=== PATIENT | female | born 1995 | race African-American/Black ===

== ENCOUNTER 2019-01-05 18:41 | Emergency (ER) | payer OTHER ==
[~2019-01-05] VITALS: Ht 175.3 cm; Wt 51.5 kg
[2019-01-05 20:08] LABS: CLARITY URINE CLEAR (CLEAR); COLOR URINE YELLOW (YELLOW); KETONES URINE NEGATIVE (NEGATIVE); LEUKOCYTE ESTERASE URINE 2+ (NEGATIVE); NITRITE URINE NEGATIVE (NEGATIVE); OCCULT BLOOD URINE TRACE (NEGATIVE); PH URINE 6.5 (4.5-8.0); PROTEIN URINE NEGATIVE (NEGATIVE); SPECIFIC GRAVITY URINE 1.021 (1.005-1.030); UROBILINOGEN URINE 0.2 E.U./dL (0.2-1.0)
[2019-01-05 20:20] LABS: BASOPHILS % 0.4 % (0.0-2.0); EOSINOPHILS % 0.2 % (0.0-5.0); HEMATOCRIT. 35.9 % (36.0-48.0); HEMOGLOBIN. 11.9 g/dL (12.0-16.0); LYMPHOCYTES % 10.4 % (20.0-50.0); MEAN CORPUSCULAR VOLUME 90.4 fL (81.0-99.0); MEAN PLATELET VOLUME 8.4 fl (7.4-10.4); PLATELET 218 x1000/uL (130-400); RED BLOOD CELL COUNT 3.97 mill/uL (4.2-5.4); RED CELL DISTRIBUTION WIDTH 14.3 % (11.6-14.6)
[2019-01-05 20:26] LABS: CHLORIDE 104 mEq/L (98-107)
[2019-01-05 20:27] LABS: PROTHROMBIN TIME 10.1 sec (9.6-11.0)
[2019-01-05] MEDS ORDERED: AZITHROMYCIN 500 MG TABLET PO ONE (20:45)
[2019-01-05] MEDS ORDERED: IBUPROFEN 600MG TABLET PO ONE (20:45)
[2019-01-05] MEDS ORDERED: CEFTRIAXONE 1 G PREMIX 50 ML IV ONE (20:45)
[2019-01-05] MEDS ORDERED: ONDANSETRON HCL 4MG/2ML INJ IV ONE (21:00)
[2019-01-05 23:29] VITALS: BP 99/61
[2019-01-08 15:11] LABS: CHLAMYDIA TRACHOMATIS NAA Positive (Negative); NEISSERIA GONORRHOEAE NAA Positive (Negative)
== END 2019-01-05 23:31 | disposition home or self-care (01) ==
LOC: ER 19:44
DX: N39.0 Urinary tract infection, site not specified (principal); F12.90 Cannabis use, unspecified, uncomplicated
CPT/HCPCS: 36415; 76856; 80053; 81003; 81025; 83690; 85025; 85610; 87086; 87210; 87491; 87591; 96365; 96366; 96375; 99284; J0696; J2405

== ENCOUNTER 2019-08-20 14:49 | Emergency (ER) | payer OTHER ==
[~2019-08-20] VITALS: Ht 175.3 cm; Wt 55.0 kg
[2019-08-20 18:11] VITALS: BP 110/70
== END 2019-08-20 18:50 | disposition home or self-care (01) ==
LOC: ER 14:49
DX: Z03.818 Encounter for observation for suspected exposure to other biological agents ruled out (principal); R05 Cough; R06.02 Shortness of breath; R10.9 Unspecified abdominal pain; F12.10 Cannabis abuse, uncomplicated
CPT/HCPCS: 71045; 81025; 87420; 87804; 93005; 99285

== ENCOUNTER 2019-12-20 10:49 | Emergency (ER) | payer MEDICAID, OTHER ==
[~2019-12-20] VITALS: Ht 177.8 cm; Wt 52.0 kg
[2019-12-20 10:53] VITALS: BP 130/85
== END 2019-12-20 11:41 | disposition left against medical advice (07) ==
LOC: ER 10:49
DX: M54.9 Dorsalgia, unspecified (principal); Z53.21 Procedure and treatment not carried out due to patient leaving prior to being seen by health care provider

== ENCOUNTER 2020-08-31 10:32 | Emergency (ER) | payer MEDICAID, OTHER ==
[~2020-08-31] VITALS: Ht 177.8 cm; Wt 50.0 kg
[2020-08-31] MEDS ORDERED: KETOROLAC 30MG/ML VIAL IV STA (11:01)
[2020-08-31 11:10] LABS: BASOPHILS % 0.6 % (0.0-2.0); EOSINOPHILS % 1.4 % (0.0-5.0); HEMATOCRIT. 36.2 % (36.0-48.0); HEMOGLOBIN. 11.9 g/dL (12.0-16.0); LYMPHOCYTES % 19.7 % (20.0-50.0); MEAN CORPUSCULAR HEMOGLOBIN 27.4 pg (28.0-32.0); MEAN CORPUSCULAR VOLUME 83.6 fL (81.0-99.0); MEAN PLATELET VOLUME 8.2 fl (7.4-10.4); MONOCYTES % 10.7 % (2.0-8.0); NEUTROPHILS % 67.6 % (40.0-76.0); PLATELET 216 x1000/uL (130-400); RED BLOOD CELL COUNT 4.33 mill/uL (4.2-5.4); RED CELL DISTRIBUTION WIDTH 16.3 % (11.6-14.6)
[2020-08-31 11:15] LABS: CHLORIDE 107 mEq/L (98-107)
[2020-08-31] MEDS ORDERED: SODIUM CHLORIDE 0.9% 1,000 ML IV ONE (11:15)
[2020-08-31 11:19] LABS: CLARITY URINE CLEAR (CLEAR); COLOR URINE YELLOW (YELLOW); KETONES URINE NEGATIVE (NEGATIVE); LEUKOCYTE ESTERASE URINE NEGATIVE (NEGATIVE); NITRITE URINE NEGATIVE (NEGATIVE); OCCULT BLOOD URINE 1+ (NEGATIVE); PH URINE 6.5 (4.5-8.0); PROTEIN URINE NEGATIVE (NEGATIVE); SPECIFIC GRAVITY URINE 1.012 (1.005-1.030); UROBILINOGEN URINE 0.2 E.U./dL (0.2-1.0)
[2020-08-31 11:21] LABS: HCG SCREEN NEGATIVE
[2020-08-31] MEDS ORDERED: CEFTRIAXONE 1 G PREMIX 50 ML IV ONE (12:30)
[2020-08-31] MEDS ORDERED: IBUP-2028 MT (13:03)
[2020-08-31] MEDS ORDERED: CIPR500S3 PO (13:03)
[2020-08-31 15:10] VITALS: BP 118/18
== END 2020-08-31 14:20 | disposition home or self-care (01) ==
LOC: ER 11:03
DX: N10 Acute pyelonephritis (principal); D25.9 Leiomyoma of uterus, unspecified; R10.9 Unspecified abdominal pain; F12.10 Cannabis abuse, uncomplicated
CPT/HCPCS: 36415; 71045; 74176; 76830; 76856; 80053; 81003; 81025; 83690; 84703; 85025; 93005; 96365; 96375; 99285; J0696; J1885; J7030; Z7610

== ENCOUNTER 2022-04-24 17:50 | Emergency (ER) | payer MEDICAID, OTHER ==
[~2022-04-24] VITALS: Ht 177.8 cm; Wt 51.0 kg
[~2022-04-24 17:50] MED LIST: CIPR500S3 PO; IBUP-2028 MT
[2022-04-25 00:43] LABS: BASOPHILS % 0.5 % (0.0-2.0); EOSINOPHILS % 2.2 % (0.0-5.0); HEMATOCRIT. 31.4 % (36.0-48.0); HEMOGLOBIN. 10.1 g/dL (12.0-16.0); MEAN CORPUSCULAR HEMOGLOBIN 24.9 pg (28.0-32.0); MEAN CORPUSCULAR VOLUME 77.3 fL (81.0-99.0); MEAN PLATELET VOLUME 8.2 fl (7.4-10.4); NEUTROPHILS % 48.3 % (40.0-76.0); PLATELET 238 x1000/uL (130-400); RED BLOOD CELL COUNT 4.06 mill/uL (4.2-5.4); RED CELL DISTRIBUTION WIDTH 15.4 % (11.6-14.6)
[2022-04-25 00:49] LABS: CHLORIDE 105 mEq/L (98-107)
[2022-04-25 01:09] LABS: CLARITY URINE CLOUDY (CLEAR); COLOR URINE YELLOW (YELLOW); KETONES URINE NEGATIVE (NEGATIVE); LEUKOCYTE ESTERASE URINE NEGATIVE (NEGATIVE); NITRITE URINE NEGATIVE (NEGATIVE); OCCULT BLOOD URINE NEGATIVE (NEGATIVE); PROTEIN URINE NEGATIVE (NEGATIVE); SPECIFIC GRAVITY URINE 1.017 (1.005-1.030)
[2022-04-25] MEDS ORDERED: IBUP-2028 MT ×3 (01:53→01:54)
[2022-04-25] MEDS ORDERED: MECL-159 MT ×3 (01:53→01:54)
[2022-04-25 02:00] VITALS: BP 115/79
== END 2022-04-25 02:20 | disposition home or self-care (01) ==
LOC: ER 17:50
DX: R42 Dizziness and giddiness (principal); R10.30 Lower abdominal pain, unspecified; M54.59 Other low back pain; D64.9 Anemia, unspecified
CPT/HCPCS: 36415; 80048; 81003; 85025; 99283